=== PATIENT | female | born 1990 | race Two or more races ===

== ENCOUNTER 2019-10-25 15:40 | Emergency (ER) | payer OTHER ==
[2019-10-25 16:01] VITALS: BP 136/95
--- NOTE | 2019-10-25 16:12 | ED Physician Documentation ---
PD HPI UPPER EXT INJURY - Stated complaint Stated Complaint: RT HAND INJ - Chief complaint Chief Complaint: Trauma Ext - History obtained from History obtained from: Patient - History of Present Illness Location: Right, Hand Type of injury: Blunt / blow Where injury occurred: Home Timing - onset: Last night Timing - duration: Hours (18) Timing - details: Abrupt onset Improved by: Ice Worsened by: Moving, Palpating Associated symptoms: Numbness (Along the right hyperthenar eminence), Swelling. No: Tingling Recently seen: Not recently seen - Additonal information Additional information: This is a 29-year-old [employer] is right-handed punched a wall last night around 10 PM and presents for evaluation of the pain in the fourth and fifth knuckles. She has difficulty moving the fingers because of the pain. She has not taken anything for the pain. 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 Review of Systems Skin: denies: Abrasion (s), Laceration (s) Musculoskeletal: reports: Extremity pain, Joint pain Neurologic: denies: Numbness PD PAST MEDICAL HISTORY - Present Medications Home Medications: Ambulatory Orders Medication Instructions Recorded Confirmed No Known Home Medications 10/25/19 10/25/19 - Allergies Allergies/Adverse Reactions: Allergies Allergy/AdvReac Type Severity Reaction Status Date / Time No Known Drug Allergies Allergy Verified 10/25/19 15:57 PD ED PE NORMAL - Vitals Vital signs reviewed: Yes - General General: Alert and oriented X 3, No acute distress, Well developed/nourished - Derm Derm: Normal color, Warm and dry, No rash - Extremities Extremities: No deformity, Other (There is some bruising and swelling to the dorsal right hand around the fourth and fifth knuckles. There is tenderness more over the right fourth knuckle than the fifth. She has limited range of motion about the fourth and fifth fingers just because of the pain. Sensation is intact to light touch in all of the fingers of the right hand and capillary refills less than 2 seconds. Free range of motion about her wrist without bony tenderness. ). No: No tenderness to palpate, Normal ROM s pain Results - Vitals Vitals: Vital Signs - 24 hr 10/25/19 15:57 Temperature 36.8 C Heart Rate 73 Respiratory 18 Rate Blood Pressure 136/95 H O2 Saturation 99 Oxygen O2 Source Room air - Rads (name of study) r hand Radiology: EMP read contemporaneously (neg fracture) PD MEDICAL DECISION MAKING - ED course Complexity details: reviewed results, d/w patient ED course: Patient declined dose of ibuprofen for the pain. The x-ray does not show fracture. The results will be discussed with the patient. She can Gerson wrap for comfort. Take ibuprofen and continue icing. Follow-up as needed. Departure - Departure Disposition: 01 Home, Self Care Clinical Impression: Contusion of hand, right Qualifiers: Encounter type: initial encounter Qualified Code(s): S60.221A - Contusion of right hand, initial encounter Condition: Good Instructions: ED Contusion Hand Follow-Up: doctor,your [Other] Comments: Continue to ice it that feels comfortable in an Gerson wrap for comfort. Activity limited by the pain only. [place] when you return to [place] if the pain continues.
--- NOTE | 2019-10-25 16:31 | XRAY Report ---
Reason: pain, injury Procedure Date: 10/25/2019 Accession Number: [id number] / [id number] Procedure: XR - Hand 3 View RT CPT Code: Final Report FULL RESULT: EXAM: RIGHT HAND RADIOGRAPHY EXAM DATE: 10/25/2019 04:25 PM. CLINICAL HISTORY: Pain, injury. COMPARISON: None. TECHNIQUE: 3 views. FINDINGS: Bones: Normal. No fractures or bone lesions. Joints: Normal. No subluxations. Soft Tissues: Normal. No soft tissue swelling. IMPRESSION: Normal hand radiography. [facility]
== END 2019-10-25 16:48 | disposition home or self-care (01) ==
LOC: ED 15:40
DX: S60.221A Contusion of right hand, initial encounter (principal); W22.01XA Walked into wall, initial encounter; Y93.89 Activity, other specified; Y92.009 Unspecified place in unspecified non-institutional (private) residence as the place of occurrence of the external cause
CPT/HCPCS: 99283